=== PATIENT | male | born 1970 | race Caucasian/White ===

== ENCOUNTER 2021-11-17 21:26 | Emergency (ER) | payer SELFPAY ==
--- NOTE | 2021-11-17 22:00 | NUR ---
Patient was just called at this time due to 2 emergency ocurring in the ER, but patient was not present in the waiting room or outside of ER.
--- NOTE | 2021-11-17 23:00 | NUR ---
PATIENT WAS CALLED TO BE TRIAGED BUT WAS NOT PRESENT IN THE WAITING ROOM OR OUTSIDE OF ER. PATIENT WAS NOT TRIAGED OR SEEN BY ERMD.
== END 2021-11-17 23:00 | disposition left against medical advice (07) ==
LOC: ER 21:36
DX: Z53.21 Procedure and treatment not carried out due to patient leaving prior to being seen by health care provider (principal)